=== PATIENT | female | born 1965 | race Caucasian/White ===

== ENCOUNTER 2018-03-15 10:56 | Day surgery (SDC) | payer OTHER ==
[~2018-03-15 10:56] MED LIST: KETOROLAC 60 MG/2 ML VIAL (J1885) As Ordered; LIDOCAINE 2% INJ 100 MG/5 ML SDV (FOR ANES.) As Ordered; LIDOCAINE 2% JELLY 30 ML As Ordered; MIDAZOLAM INJ 2 MG/2 ML VIAL (J2250) As Ordered; ONDANSETRON 4MG/2ML VIAL (J2405) As Ordered; PROPOFOL 200 MG/20 ML VIAL As Ordered; dexameTHASONE 4 MG/ML 1ML VIAL (J1100) As Ordered; fentaNYL 100 MCG/2 ML INJECTION (J3010) As Ordered
[2018-03-15] MEDS ORDERED: LR 1,000 ML IV ×3 (11:00→13:45)
[2018-03-15] MEDS: CLINDAMYCIN 900 MG in APPROPRIATE DILUENT 1 EA IV (12:39)
[2018-03-15] MEDS: ROPIvacaine 0.5% 30 ML INJECTION (J2795 PER 1MG) As Ordered (12:55)
[2018-03-15] MEDS ORDERED: fentaNYL 100 MCG/2 ML INJECTION (J3010) IV (13:45)
[2018-03-15] MEDS ORDERED: PERCOCET 5MG/325MG TAB PO (13:45)
[2018-03-15] MEDS ORDERED: HYDROMORPHONE HCL 0.5 MG/ 0.5 ML SYRINGE (J1170 PER 1) IV (13:45)
[2018-03-15] MEDS ORDERED: ACETAMINOPH W/CODEINE #3 TAB UD PO ×2 (13:45)
[2018-03-15] MEDS ORDERED: ONDANSETRON 4MG/2ML VIAL (J2405) IV (13:45)
== END 2018-03-15 14:25 | disposition home or self-care (01) ==
LOC: M SDC 10:56
DX: M17.12 Unilateral primary osteoarthritis, left knee (principal); M23.242 Derangement of anterior horn of lateral meniscus due to old tear or injury, left knee; M23.252 Derangement of posterior horn of lateral meniscus due to old tear or injury, left knee; I10 Essential (primary) hypertension; E78.00 Pure hypercholesterolemia, unspecified; K21.9 Gastro-esophageal reflux disease without esophagitis; Z88.0 Allergy status to penicillin; G47.30 Sleep apnea, unspecified; F41.9 Anxiety disorder, unspecified; F32.9 Major depressive disorder, single episode, unspecified; F17.210 Nicotine dependence, cigarettes, uncomplicated; Z79.899 Other long term (current) drug therapy
CPT/HCPCS: 29880

== ENCOUNTER 2023-01-07 14:05 | Inpatient (IN) | payer OTHER ==
[~2023-01-07] VITALS: Ht 154.9 cm; Wt 60.5 kg
[~2023-01-07 14:05] MED LIST changes: +AMBI10TA PO; +BUSP15TA47 PO; +DETR4CAP PO; +EFFE75CA2 PO; -KETOROLAC 60 MG/2 ML VIAL (J1885) As Ordered; +LANS30TA5 PO; -LIDOCAINE 2% INJ 100 MG/5 ML SDV (FOR ANES.) As Ordered; -LIDOCAINE 2% JELLY 30 ML As Ordered; +LISI20TA33 PO; +LORA-243 PO; +LOVA40TA PO; -MIDAZOLAM INJ 2 MG/2 ML VIAL (J2250) As Ordered; +MONT-5 PO; +NAPR-855 PO; -ONDANSETRON 4MG/2ML VIAL (J2405) As Ordered; -PROPOFOL 200 MG/20 ML VIAL As Ordered; +TRAZ-257 PO; -dexameTHASONE 4 MG/ML 1ML VIAL (J1100) As Ordered; -fentaNYL 100 MCG/2 ML INJECTION (J3010) As Ordered
[2023-01-07] MEDS ORDERED: VENL150C43 PO (14:32)
[2023-01-07] MEDS ORDERED: TRAZ-189 (14:32)
[2023-01-07] MEDS ORDERED: MELO7.5T35 PO (14:32)
[2023-01-07] MEDS ORDERED: OXYB5TAB10 PO (14:32)
[2023-01-07] MEDS ORDERED: ZOLP10TA2 (14:32)
[2023-01-07] MEDS ORDERED: TRIA37.577 (14:32)
[2023-01-07] MEDS ORDERED: ATOR40TA75 PO (14:32)
[2023-01-07 16:55] LABS: BASO % 0.6 % (0.0-1.0); EOS % 0.2 % (0.0-3.0); HEMATOCRIT 38.4 % (36.0-47.0); HEMOGLOBIN 13.7 g/dl (12.0-15.5); LYMPH # 0.8 10^3/uL (1.5-5.0); LYMPH % 12.9 % (24.0-44.0); MEAN CORPUSCULAR HEMOGLOBIN 30.8 pg (27.0-33.0); MEAN CORPUSCULAR HGB CONC 35.7 g/dl (32.0-36.5); MEAN CORPUSCULAR VOLUME 86.3 fl (80.0-96.0); MONO # 0.5 10^3/uL (0.0-0.8); MONO % 8.2 % (2.0-8.0); NEUTROPHILS % 77.5 % (36.0-66.0); PLATELET COUNT, AUTOMATED 302 10^3/uL (150-450); RED BLOOD COUNT 4.45 10^6/uL (4.00-5.40); WHITE BLOOD COUNT 6.4 10^3/uL (4.0-10.0)
[2023-01-07] MEDS ORDERED: NS 500 ML IV ONE (17:15)
[2023-01-07] MEDS ORDERED: ACETAMINOPHEN TAB 650MG DOSE (2X325MG) PO PRN (17:55)
[2023-01-07] MEDS ORDERED: MOM 30ML SUSPENSION UDC PO PRN (17:55)
[2023-01-07 18:25] LABS: URIC ACID 3.9 MG/DL (3.1-7.8)
[2023-01-07 18:31] LABS: FREE T4 1.23 NG/DL (0.89-1.76); THYROID STIMULATING HORMONE 0.482 uIU/ML (0.55-4.78)
[2023-01-07 19:02] LABS: APPEARANCE, URINE CLOUDY (CLEAR); BACTERIA, URINE AUTO 2+ (NEGATIVE); BILIRUBIN, URINE AUTO NEGATIVE (NEGATIVE); BLOOD, URINE BLOOD 1+ (NEGATIVE); COLOR, URINE YELLOW (YELLOW); GLUCOSE, URINE (UA) AUTO NEGATIVE (NEGATIVE); KETONE, URINE AUTO TRACE mg/dL (NEGATIVE); LEUKOCYTE ESTERASE, URINE AUTO 3+ (NEGATIVE); MUCUS, URINE SMALL (NEGATIVE); NITRITE, URINE AUTO NEGATIVE (NEGATIVE); PROTEIN, URINE AUTO NEGATIVE (NEGATIVE); RBC, URINE AUTO 1 /HPF (0-3); SQUAMOUS EPITHELIAL CELL UR AU 7 /HPF (0-6); UROBILINOGEN, URINE AUTO 0.2 mg/dL (0.0-2.0); WBC, URINE AUTO 57 /HPF (0-3)
[2023-01-07 19:09] LABS: INR 0.92; PARTIAL THROMBOPLASTIN TIME 28.7 SECONDS (24.8-34.2); PROTHROMBIN TIME 12.6 SECONDS (12.5-14.5)
[2023-01-07 19:25] LABS: URIC ACID,RANDOM URINE 25.3 MG/DL
[2023-01-07] MEDS ORDERED: ALBU8.5H PO (19:25)
[2023-01-07 19:28] LABS: CREATININE,RANDOM URINE 67.3 MG/DL; RSV AMPLIFICATION NEGATIVE (NEGATIVE)
[2023-01-07] MEDS ORDERED: HOME MED LIST COMPLETE! XX SCH (19:30)
[2023-01-07 20:17] VITALS: BP 136/85
[2023-01-07] MEDS: NICOTINE 21MG/24HR 1 EA TRANSDERMAL TD SCH (20:41)
[2023-01-07] MEDS: DOCUSATE SODIUM 100MG CAPSULE PO SCH (20:42)
[2023-01-07] MEDS ORDERED: MELOXICAM (MOBIC) 7.5 MG TAB PO PRN (23:10)
[2023-01-07] MEDS ORDERED: ALBUTEROL 90 MCG/ACT 8GM HFA INHALER INH PRN (23:10)
[2023-01-07] MEDS ORDERED: zolPIDEM TARTRATE 5 MG TAB PO PRN (23:10)
[2023-01-07] MEDS: busPIRone 5 MG TAB PO SCH (23:33)
[2023-01-07] MEDS: oxyBUTYnin 5 MG TAB PO SCH (23:33)
[2023-01-08 03:57] VITALS: BP 105/61
[2023-01-08 06:00] VITALS: BP 115/63
[2023-01-08 06:29] LABS: OSMOLALITY SERUM 256 MOSM/KG (275-295)
[2023-01-08 06:34] LABS: BLOOD UREA NITROGEN 18 MG/DL (9-23); CALCIUM LEVEL 8.5 MG/DL (8.5-10.1); CARBON DIOXIDE LEVEL 26 MMOL/L (20-31); CHLORIDE LEVEL 91 MMOL/L (98-107); CREATININE FOR GFR 0.87 MG/DL (0.55-1.30); GLOMERULAR FILTRATION RATE > 60.0 (>51); GLUCOSE, FASTING 91 MG/DL (60-100); SODIUM LEVEL 122 MMOL/L (136-145)
[2023-01-08] MEDS: busPIRone 5 MG TAB PO SCH ×2 (08:38→16:20)
[2023-01-08] MEDS: oxyBUTYnin 5 MG TAB PO SCH (08:38)
[2023-01-08] MEDS: DOCUSATE SODIUM 100MG CAPSULE PO SCH (08:41)
[2023-01-08] MEDS: NICOTINE 21MG/24HR 1 EA TRANSDERMAL TD SCH (08:41)
[2023-01-08 08:45] VITALS: BP_SYST 114; BP_SYST 69; BP_SYST 88; BP_DIAS 51; BP_DIAS 55; BP_DIAS 64
[2023-01-08] MEDS ORDERED: ATORVASTATIN 20 MG TAB PO SCH (09:00)
[2023-01-08] MEDS ORDERED: SODIUM CHLORIDE 1 GM TAB PO SCH (09:00)
[2023-01-08] MEDS ORDERED: ENOXAPARIN 40MG/0.4ML SYRINGE (J1650 PER 10MG) SC SCH (09:00)
[2023-01-08] MEDS ORDERED: MONTELUKAST 10 MG TAB PO SCH (09:00)
[2023-01-08] MEDS ORDERED: LORATADINE 10 MG TAB PO SCH (09:00)
[2023-01-08] MEDS ORDERED: VALSARTAN 80 MG TAB (DIOVAN) PO SCH (09:00)
[2023-01-08 10:00] VITALS: BP 105/66
[2023-01-08] MEDS ORDERED: ISOVUE-370 76% 100ML VIAL As Ordered ONE (11:31)
[2023-01-08 11:42] LABS: IRON (FE) 62 UG/DL (50-170); PERCENT SATURATION 22.9 % (13.2-45.0); TOTAL IRON BINDING CAPACITY 271 UG/DL (250-425)
[2023-01-08 11:44] LABS: FERRITIN 118.9 NG/ML (7.3-270.7)
[2023-01-08] MEDS: MIDODRINE 5 MG TAB PO SCH ×2 (12:39→16:20)
[2023-01-08] MEDS ORDERED: TOLVAPTAN 7.5 MG HALF-TAB PO ONE (13:00)
[2023-01-08 14:00] VITALS: BP 121/65
[2023-01-08 16:21] VITALS: BP_SYST 112; BP_SYST 114; BP_SYST 139; BP_DIAS 65; BP_DIAS 80
[2023-01-08] MEDS ORDERED: traZODone 100 MG TAB PO SCH (21:00)
[2023-01-09] MEDS ORDERED: VALSARTAN 80 MG TAB (DIOVAN) PO SCH (09:00)
== END 2023-01-08 16:51 | disposition left against medical advice (07) | DRG 424 ==
LOC: M ED 14:05 → EDBD 14:05 → EDUNIT# 14:05 → M ED INP 17:54 → M MSPAV 20:15
PROVIDERS: ADMIT Student in an Organized Health Care Education/Training Program; ATTEND Student in an Organized Health Care Education/Training Program
DX: E22.2 Syndrome of inappropriate secretion of antidiuretic hormone (principal); I10 Essential (primary) hypertension; E78.5 Hyperlipidemia, unspecified; K21.9 Gastro-esophageal reflux disease without esophagitis; F32.A Depression, unspecified; F41.9 Anxiety disorder, unspecified; J45.909 Unspecified asthma, uncomplicated; I95.1 Orthostatic hypotension; R11.10 Vomiting, unspecified; D64.9 Anemia, unspecified; F17.210 Nicotine dependence, cigarettes, uncomplicated; R63.4 Abnormal weight loss; J44.9 Chronic obstructive pulmonary disease, unspecified; G47.00 Insomnia, unspecified; N32.81 Overactive bladder; Z79.899 Other long term (current) drug therapy; Z88.0 Allergy status to penicillin

== ENCOUNTER → 2023-05-16 | Outpatient (REF) | payer OTHER ==
[~2023-05-16] MED LIST changes: +ALBU8.5H PO; +ATOR40TA75 PO; +MELO7.5T35 PO; +OXYB5TAB10 PO; +TRAZ-189; +TRIA37.577; +VENL150C43 PO; +ZOLP10TA2
[2023-05-16 17:34] LABS: BASO % 0.4 % (0.0-1.0); EOS # 0.1 10^3/uL (0.0-0.5); EOS % 1.4 % (0.0-3.0); HEMATOCRIT 38.2 % (36.0-47.0); LYMPH # 1.7 10^3/uL (1.5-5.0); LYMPH % 18.3 % (24.0-44.0); MEAN CORPUSCULAR HEMOGLOBIN 31.2 pg (27.0-33.0); MEAN CORPUSCULAR VOLUME 91.6 fl (80.0-96.0); MONO # 0.5 10^3/uL (0.0-0.8); MONO % 5.8 % (2.0-8.0); NEUTROPHILS # 6.8 10^3/uL (1.5-8.5); NEUTROPHILS % 73.7 % (36.0-66.0); PLATELET COUNT, AUTOMATED 318 10^3/uL (150-450); RED BLOOD COUNT 4.17 10^6/uL (4.00-5.40); WHITE BLOOD COUNT 9.2 10^3/uL (4.0-10.0)
[2023-05-16 17:46] LABS: HEMOGLOBIN A1c 5.1 % (4.0-6.0)
[2023-05-16 17:58] LABS: ALBUMIN 3.5 G/DL (3.2-5.2); ALKALINE PHOSPHATASE 82 U/L (46-116); ALT/SGPT 19 U/L (7.0-40); AST/SGOT 11 U/L (<34); BILIRUBIN,TOTAL 0.2 MG/DL (0.3-1.2); BLOOD UREA NITROGEN 10 MG/DL (9-23); CALCIUM LEVEL 8.7 MG/DL (8.5-10.1); CARBON DIOXIDE LEVEL 26 MMOL/L (20-31); CHLORIDE LEVEL 104 MMOL/L (98-107); CHOLESTEROL LEVEL 153 MG/DL (<200); CHOLESTEROL RISK RATIO 2.61 (<5); CREATININE FOR GFR 0.69 MG/DL (0.55-1.30); GLOMERULAR FILTRATION RATE > 60.0 (>51); GLUCOSE, FASTING 105 MG/DL (60-100); HDL CHOLESTEROL 58.6 MG/DL (>40); NON-HDL-C 94.4 MG/DL; SODIUM LEVEL 136 MMOL/L (136-145); TOTAL PROTEIN 6.4 G/DL (5.7-8.2); TRIGLYCERIDES LEVEL 72 MG/DL (<150)
[2023-05-16 17:59] LABS: THYROID STIMULATING HORMONE 1.408 uIU/ML (0.55-4.78)
== END ==
LOC: M LAB REF 17:04
PROVIDERS: ATTEND Nurse Practitioner Family
DX: Z13.228 Encounter for screening for other metabolic disorders (principal)

== ENCOUNTER → 2023-05-22 | Outpatient (CLI) | payer OTHER | LOC: M RAD 12:36 | PROVIDERS: ATTEND Nurse Practitioner Family | DX: M25.531 Pain in right wrist (principal) ==

== ENCOUNTER → 2023-07-18 | Outpatient (CLI) | payer OTHER ==
[~2023-07-18] MED LIST changes: -OXYB5TAB10 PO; +OXYB5TAB11 PO
== END ==
LOC: M RAD 14:33
PROVIDERS: ATTEND Physician Assistant
DX: M25.562 Pain in left knee (principal)

== ENCOUNTER → 2024-02-14 | Outpatient (CLI) | payer OTHER ==
[~2024-02-14] MED LIST changes: -OXYB5TAB11 PO; +OXYB5TAB14 PO
== END ==
LOC: M RAD 17:04
PROVIDERS: ATTEND Physician Assistant
DX: S69.91XA Unspecified injury of right wrist, hand and finger(s), initial encounter (principal); W19.XXXA Unspecified fall, initial encounter; Y92.9 Unspecified place or not applicable; Y93.9 Activity, unspecified; Y99.9 Unspecified external cause status; X58.XXXA Exposure to other specified factors, initial encounter

== ENCOUNTER → 2024-03-05 | Outpatient (REF) | payer OTHER ==
[2024-03-06 14:43] LABS: ALBUMIN 3.8 G/DL (3.2-5.2); ALKALINE PHOSPHATASE 74 U/L (46-116); ALT/SGPT 16 U/L (7.0-40); AST/SGOT 12 U/L (<34); BILIRUBIN,TOTAL 0.2 MG/DL (0.3-1.2); BLOOD UREA NITROGEN 13 MG/DL (9-23); CALCIUM LEVEL 8.8 MG/DL (8.5-10.1); CARBON DIOXIDE LEVEL 25 MMOL/L (20-31); CHLORIDE LEVEL 105 MMOL/L (98-107); CHOLESTEROL LEVEL 156 MG/DL (<200); CREATININE FOR GFR 0.84 MG/DL (0.55-1.30); GLOMERULAR FILTRATION RATE > 60.0 (>51); GLUCOSE, FASTING 110 MG/DL (60-100); HDL CHOLESTEROL 44.5 MG/DL (>40); LDL CHOLESTEROL 71.3 MG/DL (<100); MAGNESIUM LEVEL 1.6 MG/DL (1.8-2.4); NON-HDL-C 111.5 MG/DL; POTASSIUM SERUM 4.2 MMOL/L (3.5-5.1); SODIUM LEVEL 134 MMOL/L (136-145); TOTAL PROTEIN 6.5 G/DL (5.7-8.2); TRIGLYCERIDES LEVEL 201 MG/DL (<150)
[2024-03-06 14:44] LABS: BASO # 0.1 10^3/uL (0.0-0.2); EOS # 0.1 10^3/uL (0.0-0.5); EOS % 1.7 % (0.0-3.0); HEMATOCRIT 36.9 % (36.0-47.0); HEMOGLOBIN 12.6 g/dl (12.0-15.5); LYMPH # 2.1 10^3/uL (1.5-5.0); LYMPH % 28.8 % (24.0-44.0); MEAN CORPUSCULAR HEMOGLOBIN 32.1 pg (27.0-33.0); MEAN CORPUSCULAR HGB CONC 34.1 g/dl (32.0-36.5); MEAN CORPUSCULAR VOLUME 93.9 fl (80.0-96.0); MONO # 0.5 10^3/uL (0.0-0.8); MONO % 6.9 % (2.0-8.0); NEUTROPHILS # 4.3 10^3/uL (1.5-8.5); NEUTROPHILS % 59.9 % (36.0-66.0); PLATELET COUNT, AUTOMATED 345 10^3/uL (150-450); RED BLOOD COUNT 3.93 10^6/uL (4.00-5.40); WHITE BLOOD COUNT 7.2 10^3/uL (4.0-10.0)
[2024-03-06 14:45] LABS: THYROID STIMULATING HORMONE 0.998 uIU/ML (0.55-4.78); TOTAL 25(OH) VITAMIN D 29.8 NG/ML (20.0-100.0)
[2024-03-06 15:19] LABS: HEMOGLOBIN A1c 5.3 % (4.0-6.0)
== END ==
LOC: M LAB REF 12:58
PROVIDERS: ATTEND Nurse Practitioner Family
DX: E66.3 Overweight (principal); E55.9 Vitamin D deficiency, unspecified

== ENCOUNTER → 2024-03-18 | Outpatient (CLI) | payer OTHER | LOC: M RAD 14:31 | PROVIDERS: ATTEND Nurse Practitioner Family | DX: M25.531 Pain in right wrist (principal) ==

== ENCOUNTER 2024-03-22 21:02 | Emergency (ER) | payer OTHER ==
[~2024-03-22] VITALS: Ht 157.5 cm; Wt 67.2 kg
[2024-03-22 21:12] VITALS: BP 128/64; TEMP 97.5; O2SAT 100
== END 2024-03-22 23:41 | disposition home or self-care (01) ==
LOC: M ED 21:02 → EDBD 21:02 → M ED 23:41
DX: M25.561 Pain in right knee (principal); I10 Essential (primary) hypertension; J44.9 Chronic obstructive pulmonary disease, unspecified; F17.210 Nicotine dependence, cigarettes, uncomplicated; Z88.0 Allergy status to penicillin; Z79.51 Long term (current) use of inhaled steroids; Z79.899 Other long term (current) drug therapy

== ENCOUNTER 2025-06-02 22:21 | Emergency (ER) | payer OTHER ==
[~2025-06-02 22:21] MED LIST changes: -AMBI10TA PO; +ZOLP-533 PO
[2025-06-03 01:10] LABS: PLATELET COUNT, AUTOMATED 341 10^3/uL (150-450)
[2025-06-03 01:31] LABS: AMPHETAMINES LEVEL URINE NEGATIVE (NEGATIVE); BARBITURATES URINE NEGATIVE (NEGATIVE); BENZODIAZEPINES URINE NEGATIVE (NEGATIVE); COCAINE METABOLITE URINE NEGATIVE (NEGATIVE); METHADONE URINE NEGATIVE (NEGATIVE); OPIATES URINE NEGATIVE (NEGATIVE); PHENCYCLIDINE URINE NEGATIVE (NEGATIVE)
[2025-06-03 01:32] LABS: CANNABINOIDS URINE NEGATIVE (NEGATIVE)
[2025-06-03 01:34] LABS: ETHYL ALCOHOL (ETHANOL) < 0.003 % (0.000-0.010)
[2025-06-03 01:35] LABS: ALT/SGPT 17 U/L (7.0-40); AST/SGOT 18 U/L (<34); CALCIUM LEVEL 9.0 MG/DL (8.3-10.6); CARBON DIOXIDE LEVEL 26 MMOL/L (20-31); CHLORIDE LEVEL 105 MMOL/L (98-107); CREATININE FOR GFR 0.85 MG/DL (0.55-1.30); GLOMERULAR FILTRATION RATE 77.9 (>45); POTASSIUM SERUM 4.3 MMOL/L (3.5-5.1); SALICYLATE LEVEL < 3.0 MG/DL (<30); SODIUM LEVEL 140 MMOL/L (136-145)
[2025-06-03 10:00] VITALS: BP 115/63; TEMP 97.8; O2SAT 100
== END 2025-06-03 10:20 | disposition home or self-care (01) ==
LOC: M ED 22:21
DX: F43.0 Acute stress reaction (principal); I10 Essential (primary) hypertension; E78.5 Hyperlipidemia, unspecified; F32.A Depression, unspecified; F41.9 Anxiety disorder, unspecified; J44.9 Chronic obstructive pulmonary disease, unspecified; K21.9 Gastro-esophageal reflux disease without esophagitis; F17.200 Nicotine dependence, unspecified, uncomplicated; Z88.0 Allergy status to penicillin; Z79.52 Long term (current) use of systemic steroids; Z79.02 Long term (current) use of antithrombotics/antiplatelets; Z79.899 Other long term (current) drug therapy

== ENCOUNTER → 2025-06-26 | Outpatient (CLI) | payer OTHER ==
[~2025-06-26] MED LIST changes: +ZOLP10TA11; -ZOLP10TA2
== END ==
LOC: M WHC 13:29
PROVIDERS: ATTEND Student in an Organized Health Care Education/Training Program
DX: Z12.31 Encounter for screening mammogram for malignant neoplasm of breast (principal); R92.313 Mammographic fatty tissue density, bilateral breasts